=== PATIENT | male | born 1960 | race African-American/Black ===

== ENCOUNTER 2017-01-10 22:10 | Emergency (ER) | payer MEDICAID, OTHER ==
[~2017-01-10] VITALS: Ht 185.4 cm; Wt 97.1 kg
[~2017-01-10 22:10] MED LIST: NORCO 5-325 TA1 EACH ORAL; SOMA350 MG PO
[2017-01-10] MEDS ORDERED: EPINEPHRIN0.3 MG/0.3 IM (22:41)
--- NOTE | 2017-01-10 22:41 | Emergency Room Report ---
History of Present Illness General Chief Complaint: Neck Pain Source: Patient Present Illness HPI 48-year-old male with history of cervical spinal surgery 2 mos ago presents with left-sided throat pain and swelling for one day. Patient going to consult states that it has been swollen, states that there is some pain with eating. Although he has had pain patient has still been able to eat a full meal, states that he had chicken/rice etc at 6pm today. No fever or chills. No change in voice. Patient has had mild limited mobility of his neck, but not worse than normal, patient's left-sided neck pain/the pain is not worse with movement. Denies any shortness of breath Allergies: Coded Allergies: No Known Allergies (Unverified , 09/01/13) Patient History Past Medical History: see triage record Past Surgical History: none Pertinent Family History: none Reviewed Nursing Documentation: PMH: Agreed, PSxH: Agreed Nursing Documentation-PMH Hx Hypertension: Yes Hx Asthma: Yes Review of Systems All Other Systems: negative except mentioned in HPI Physical Exam Vital Signs Date Time Temp Pulse Resp B/P (MAP) Pulse Ox O2 Delivery O2 Flow Rate FiO2 01/10/17 22:12 97.9 62 18 161/93 97 Room Air Sp02 EP Interpretation: reviewed, normal General Appearance: normal inspection, well appearing, no apparent distress, alert, GCS 15, non-toxic Head: normocephalic, atraumatic Eyes: bilateral eye normal inspection, bilateral eye PERRL, bilateral eye EOMI ENT: normal voice, moist mucus membranes, other - Bilateral tonsillar erythema and enlargement, left worse than right, uvula is midline, no signs of VESSEL CREW MEMBER, no exudates Neck: supple, other - Mild limitation of extension and flexion secondary to his surgery, rotation intact, no increased pain with extension Respiratory: normal inspection, lungs clear, normal breath sounds, no respiratory distress, no retraction, no wheezing, speaking full sentences, chest symmetrical Cardiovascular #1: normal inspection, regular rate, rhythm, no edema, normal capillary refill Cardiovascular #2: 2+ radial (R), 2+ radial (L) Gastrointestinal: normal inspection, non tender, soft, non-distended, no guarding Genitourinary: no CVA tenderness Musculoskeletal: normal inspection, back normal, normal range of motion, non- tender Neurologic: normal inspection, alert, oriented x3, responsive, motor strength/ tone normal, sensory intact, normal gait, speech normal Psychiatric: normal inspection, judgement/insight normal, memory normal Skin: normal inspection, normal color, no rash, warm/dry, well hydrated, normal turgor Medical Decision Making Diagnostic Impression: Primary Impression: Sore throat Additional Impression: Viral pharyngitis ER Course 48-year-old male with sore throat left worse than right DDX: viral vs. infectious mononucleosis vs. bacterial pharyngitis vs. allergies Other serious causes such as VESSEL CREW MEMBER / RPA / deep space neck infection history/physical most consistent with viral pharyngitis Plan: Motrin, decadron, supportive care. Abx not indicated at this time ER course: Patient remains stable in ED. Pt states improvement of pain with motrin. Disposition: Patient will be discharged to home. Patient will follow up with primary care doctor within 5 days. Strict return precautions discussed with patient such as worsening throat pain/swelling, dysphagia, high fever or chills, shortness of breath, abdominal pain, which may indicate severe illness. Patient verbalized understanding and agreed with plan. 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 Last Vital Signs Date Time Temp Pulse Resp B/P (MAP) Pulse Ox O2 Delivery O2 Flow Rate FiO2 01/10/17 22:12 97.9 62 18 161/93 97 Room Air Disposition: HOME, SELF-CARE Condition: Improved Scripts Epinephrine (Epinephrine) 0.3 Mg/0.3 Ml Auto.injct 0.3 MG IM ONCE, #1 EA 0 Refills Prov: Denisse Mendoza M.D. 01/10/17 Patient Instructions: Pharyngitis, [id number] Denisse Mendoza M.D. Jan 10, 2017 22:41
--- NOTE | 2017-01-10 22:41 | Emergency Room Report ---
History of Present Illness General Chief Complaint: Neck Pain Source: Patient Present Illness HPI 48-year-old male with history of cervical spinal surgery 2 mos ago presents with left-sided throat pain and swelling for one day. Patient going to consult states that it has been swollen, states that there is some pain with eating. Although he has had pain patient has still been able to eat a full meal, states that he had chicken/rice etc at 6pm today. No fever or chills. No change in voice. Patient has had mild limited mobility of his neck, but not worse than normal, patient's left-sided neck pain/the pain is not worse with movement. Denies any shortness of breath Allergies: Coded Allergies: No Known Allergies (Unverified , 09/01/13) Patient History Past Medical History: see triage record Past Surgical History: none Pertinent Family History: none Reviewed Nursing Documentation: PMH: Agreed, PSxH: Agreed Nursing Documentation-PMH Hx Hypertension: Yes Hx Asthma: Yes Review of Systems All Other Systems: negative except mentioned in HPI Physical Exam Vital Signs Date Time Temp Pulse Resp B/P (MAP) Pulse Ox O2 Delivery O2 Flow Rate FiO2 01/10/17 22:12 97.9 62 18 161/93 97 Room Air Sp02 EP Interpretation: reviewed, normal General Appearance: normal inspection, well appearing, no apparent distress, alert, GCS 15, non-toxic Head: normocephalic, atraumatic Eyes: bilateral eye normal inspection, bilateral eye PERRL, bilateral eye EOMI ENT: normal voice, moist mucus membranes, other - Bilateral tonsillar erythema and enlargement, left worse than right, uvula is midline, no signs of BUSINESS LEADER, no exudates Neck: supple, other - Mild limitation of extension and flexion secondary to his surgery, rotation intact, no increased pain with extension Respiratory: normal inspection, lungs clear, normal breath sounds, no respiratory distress, no retraction, no wheezing, speaking full sentences, chest symmetrical Cardiovascular #1: normal inspection, regular rate, rhythm, no edema, normal capillary refill Cardiovascular #2: 2+ radial (R), 2+ radial (L) Gastrointestinal: normal inspection, non tender, soft, non-distended, no guarding Genitourinary: no CVA tenderness Musculoskeletal: normal inspection, back normal, normal range of motion, non- tender Neurologic: normal inspection, alert, oriented x3, responsive, motor strength/ tone normal, sensory intact, normal gait, speech normal Psychiatric: normal inspection, judgement/insight normal, memory normal Skin: normal inspection, normal color, no rash, warm/dry, well hydrated, normal turgor Medical Decision Making Diagnostic Impression: Primary Impression: Sore throat Additional Impression: Viral pharyngitis ER Course 48-year-old male with sore throat left worse than right DDX: viral vs. infectious mononucleosis vs. bacterial pharyngitis vs. allergies Other serious causes such as BUSINESS LEADER / RPA / deep space neck infection history/physical most consistent with viral pharyngitis Plan: Motrin, decadron, supportive care. Abx not indicated at this time ER course: Patient remains stable in ED. Pt states improvement of pain with motrin. Disposition: Patient will be discharged to home. Patient will follow up with primary care doctor within 5 days. Strict return precautions discussed with patient such as worsening throat pain/swelling, dysphagia, high fever or chills, shortness of breath, abdominal pain, which may indicate severe illness. Patient verbalized understanding and agreed with plan. 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 Last Vital Signs Date Time Temp Pulse Resp B/P (MAP) Pulse Ox O2 Delivery O2 Flow Rate FiO2 01/10/17 22:12 97.9 62 18 161/93 97 Room Air Disposition: HOME, SELF-CARE Condition: Improved Scripts Epinephrine (Epinephrine) 0.3 Mg/0.3 Ml Auto.injct 0.3 MG IM ONCE, #1 EA 0 Refills Prov: Denisse Mendoza M.D. 01/10/17 Patient Instructions: Pharyngitis, [id number] Denisse Mendoza M.D. Jan 10, 2017 22:41
--- NOTE | 2017-01-10 22:41 | Emergency Room Report ---
History of Present Illness General Chief Complaint: Neck Pain Source: Patient Present Illness HPI 48-year-old male with history of cervical spinal surgery 2 mos ago presents with left-sided throat pain and swelling for one day. Patient going to consult states that it has been swollen, states that there is some pain with eating. Although he has had pain patient has still been able to eat a full meal, states that he had chicken/rice etc at 6pm today. No fever or chills. No change in voice. Patient has had mild limited mobility of his neck, but not worse than normal, patient's left-sided neck pain/the pain is not worse with movement. Denies any shortness of breath Allergies: Coded Allergies: No Known Allergies (Unverified , 09/01/13) Patient History Past Medical History: see triage record Past Surgical History: none Pertinent Family History: none Reviewed Nursing Documentation: PMH: Agreed, PSxH: Agreed Nursing Documentation-PMH Hx Hypertension: Yes Hx Asthma: Yes Review of Systems All Other Systems: negative except mentioned in HPI Physical Exam Vital Signs Date Time Temp Pulse Resp B/P (MAP) Pulse Ox O2 Delivery O2 Flow Rate FiO2 01/10/17 22:12 97.9 62 18 161/93 97 Room Air Sp02 EP Interpretation: reviewed, normal General Appearance: normal inspection, well appearing, no apparent distress, alert, GCS 15, non-toxic Head: normocephalic, atraumatic Eyes: bilateral eye normal inspection, bilateral eye PERRL, bilateral eye EOMI ENT: normal voice, moist mucus membranes, other - Bilateral tonsillar erythema and enlargement, left worse than right, uvula is midline, no signs of BUSINESS ATTORNEY, no exudates Neck: supple, other - Mild limitation of extension and flexion secondary to his surgery, rotation intact, no increased pain with extension Respiratory: normal inspection, lungs clear, normal breath sounds, no respiratory distress, no retraction, no wheezing, speaking full sentences, chest symmetrical Cardiovascular #1: normal inspection, regular rate, rhythm, no edema, normal capillary refill Cardiovascular #2: 2+ radial (R), 2+ radial (L) Gastrointestinal: normal inspection, non tender, soft, non-distended, no guarding Genitourinary: no CVA tenderness Musculoskeletal: normal inspection, back normal, normal range of motion, non- tender Neurologic: normal inspection, alert, oriented x3, responsive, motor strength/ tone normal, sensory intact, normal gait, speech normal Psychiatric: normal inspection, judgement/insight normal, memory normal Skin: normal inspection, normal color, no rash, warm/dry, well hydrated, normal turgor Medical Decision Making Diagnostic Impression: Primary Impression: Sore throat Additional Impression: Viral pharyngitis ER Course 48-year-old male with sore throat left worse than right DDX: viral vs. infectious mononucleosis vs. bacterial pharyngitis vs. allergies Other serious causes such as BUSINESS ATTORNEY / RPA / deep space neck infection history/physical most consistent with viral pharyngitis Plan: Motrin, decadron, supportive care. Abx not indicated at this time ER course: Patient remains stable in ED. Pt states improvement of pain with motrin. Disposition: Patient will be discharged to home. Patient will follow up with primary care doctor within 5 days. Strict return precautions discussed with patient such as worsening throat pain/swelling, dysphagia, high fever or chills, shortness of breath, abdominal pain, which may indicate severe illness. Patient verbalized understanding and agreed with plan. 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 Last Vital Signs Date Time Temp Pulse Resp B/P (MAP) Pulse Ox O2 Delivery O2 Flow Rate FiO2 01/10/17 22:12 97.9 62 18 161/93 97 Room Air Disposition: HOME, SELF-CARE Condition: Improved Scripts Epinephrine (Epinephrine) 0.3 Mg/0.3 Ml Auto.injct 0.3 MG IM ONCE, #1 EA 0 Refills Prov: Denisse Mendoza M.D. 01/10/17 Patient Instructions: Pharyngitis, [id number] Denisse Mendoza M.D. Jan 10, 2017 22:41
[2017-01-10] MEDS ORDERED: Dexamethasone 4mg/ml vial IM ONE (22:45)
[2017-01-10 22:58] VITALS: BP 133/85
== END 2017-01-10 22:58 | disposition home or self-care (01) ==
LOC: EMR 22:45
DX: J02.8 Acute pharyngitis due to other specified organisms (principal); B97.89 Other viral agents as the cause of diseases classified elsewhere; I10 Essential (primary) hypertension; J45.909 Unspecified asthma, uncomplicated
CPT/HCPCS: 96372; 99283; J1100

== ENCOUNTER 2017-01-18 16:18 | Emergency (ER) | payer OTHER ==
[~2017-01-18] VITALS: Ht 185.4 cm; Wt 97.1 kg
[~2017-01-18 16:18] MED LIST changes: +EPINEPHRIN0.3 MG/0.3 IM
[2017-01-18 16:25] VITALS: BP 150/92
--- NOTE | 2017-01-18 16:40 | Emergency Room Report ---
History of Present Illness General Chief Complaint: Upper Respiratory Illness Source: Patient, Medical Record Present Illness HPI Patient presents with complaints of cough and congestion over the past 2 weeks it has been somewhat productive patient reports previous neck surgery Otherwise denies any chest pain denies any back or flank pain He feels a breathing treatment would help him at this time Denies any recent fevers denies any pleurisy Given that the cough has persisted for extensive period time he presents for further eval Allergies: Coded Allergies: No Known Allergies (Unverified , 09/01/13) Patient History Past Medical History: see triage record Pertinent Family History: none Reviewed Nursing Documentation: PMH: Agreed, PSxH: Agreed Nursing Documentation-PMH Past Medical History: No History, Except For Hx Hypertension: Yes Hx Asthma: Yes Hx Neurological Problems: Yes - cervical stenosis Review of Systems All Other Systems: negative except mentioned in HPI Physical Exam Vital Signs Date Time Temp Pulse Resp B/P (MAP) Pulse Ox O2 Delivery O2 Flow Rate FiO2 01/18/17 16:25 98.2 58 16 150/92 97 Room Air Sp02 EP Interpretation: reviewed, normal General Appearance: well appearing, no apparent distress Head: normocephalic, atraumatic Eyes: bilateral eye PERRL, bilateral eye EOMI ENT: hearing grossly normal, normal pharynx, TMs + canals normal, uvula midline Neck: full range of motion, supple, no meningismus, no bony tend Respiratory: no rhonchi, no respiratory distress, no retraction, no accessory muscle use, wheezing - Very fine wheezing in both lower lobes Cardiovascular #1: normal peripheral pulses, regular rate, rhythm, no edema, no gallop, no JVD, no murmur Gastrointestinal: normal bowel sounds, non tender, soft, no mass, no organomegaly, non-distended, no guarding, no hernia, no pulsatile mass, no rebound Musculoskeletal: normal inspection Neurologic: oriented x3, responsive, fulfillment specialist III-XII nml as tested, motor strength/ tone normal, sensory intact Psychiatric: mood/affect normal Skin: normal color, no rash, warm/dry, palpation normal Lymphatic: normal inspection, no adenopathy Medical Decision Making Diagnostic Impression: Primary Impression: Upper respiratory infection ER Course Multiple differentials considered Patient has x-ray imaging obtained which was negative at this time has done significantly better and will have initial conservative outpatient trial Chest X-Ray Diagnostic Results Chest X-Ray Diagnostic Results : Chest X-Ray Ordered: Yes # of Views/Limited/Complete: 1 View Indication: Chest Pain EP Interpretation: Yes Interpretation: no consolidation, no effusion, no pneumothorax Impression: No acute disease Electronically Signed by: Devin Gutierrez DO Last Vital Signs Date Time Temp Pulse Resp B/P (MAP) Pulse Ox O2 Delivery O2 Flow Rate FiO2 01/18/17 16:25 98.2 16 150/92 97 Room Air 01/18/17 16:25 58 Status: improved Disposition: HOME, SELF-CARE Condition: Improved Scripts Ondansetron Odt* (ZOFRAN ODT*) 4 Mg Tab.rapdis 4 MG ORAL Q6H Y for Nausea & Vomiting, #20 TAB 0 Refills Prov: DEVIN GUTIERREZ D.O. 01/18/17 Guaifenesin/Dextromethorphan (ROBITUSSIN COUGH-CHEST DM LIQ) 237 Ml Liquid 237 ML PO BID for 5 Days, ML Prov: DEVIN GUTIERREZ D.O. 01/18/17 Albuterol Sulfate* (ALBUTEROL SULFATE MDI*) 8.5 Gm Hfa.aer.ad 2 PUFF INH Q6H, #1 EA 0 Refills Prov: DEVIN GUTIERREZ D.O. 01/18/17 Additional Instructions: Patient is provided with the discharge instructions notified to follow up with primary doctor in the next 2-3 days otherwise return to the er with any worsening symptoms. Please note that this report is being documented using [employer] technology. This can lead to erroneous entry secondary to incorrect interpretation by the dictating instrument. DEVIN GUTIERREZ D.O. Jan 18, 2017 16:40
[2017-01-18] MEDS ORDERED: Ipratropium 0.02% Inh Soln 2.5ml UD HHN ONE (16:45)
[2017-01-18] MEDS ORDERED: Albuterol ud Inhalation HHN ONE (16:45)
[2017-01-18] MEDS ORDERED: ALBUTEROL SULF8.5 GM INH (17:22)
[2017-01-18] MEDS ORDERED: ROBITUSSIN COU237 M1 PO (17:22)
[2017-01-18] MEDS ORDERED: ZOFRAN ODT4 MG ORAL (17:26)
[2017-01-18 17:33] VITALS: BP 150/92
--- NOTE | 2017-01-19 10:05 | Diagnostic Imaging Report ---
Indication: SOB Comparison: None Findings: Single view of the chest shows a normal cardiomediastinal silhouette. Pulmonary vasculature is normal. Lung are clear. Soft tissues and osseous structures are within normal limits. Impression: No acute chest disease
== END 2017-01-18 17:35 | disposition home or self-care (01) ==
LOC: EMR 17:33
DX: J06.9 Acute upper respiratory infection, unspecified (principal); I10 Essential (primary) hypertension; J45.909 Unspecified asthma, uncomplicated
CPT/HCPCS: 71010; 94664; 99284